=== PATIENT | male | born 1985 | race Caucasian/White ===

== ENCOUNTER 2021-10-22 17:01 | Emergency (ER) | payer MEDICARE, OTHER ==
[~2021-10-22 17:01] MED LIST: AUGMENTIN 500-500 MG PO; CALCIUM500 MG PO; CATAPRES 0.1MG0.1 MG PO; COREG 3.125M3.125 MG PO; LONITEN TAB 1010 MG PO; MINOXIDIL2.5 MG PO; OXYCODONE HCL10 MG PO; PROCRIT10000 UNIT INJ; RENVELA800 MG PO; SEVELAMER HYDROCHLORIDE PO; TUMS ULTRA400 MG PO
[2021-10-22 18:34] LABS: HEMOGLOBIN 7.2 gm/dl (14.0-17.5); RED BLOOD COUNT 2.55 M/UL (4.20-5.50); WHITE BLOOD COUNT 7.4 K/UL (4.5-11.0)
== END 2021-10-22 21:32 | disposition home or self-care (01) ==
LOC: ER1 17:01
PROVIDERS: Physician Assistant Medical
DX: R10.9 Unspecified abdominal pain (principal); E87.6 Hypokalemia; G89.29 Other chronic pain; M79.604 Pain in right leg; M79.605 Pain in left leg; M54.9 Dorsalgia, unspecified; F11.20 Opioid dependence, uncomplicated; Z20.822 Contact with and (suspected) exposure to COVID-19; Z88.1 Allergy status to other antibiotic agents; Z99.2 Dependence on renal dialysis; I12.0 Hypertensive chronic kidney disease with stage 5 chronic kidney disease or end stage renal disease; N18.6 End stage renal disease; F17.210 Nicotine dependence, cigarettes, uncomplicated
CPT/HCPCS: 80053; 82140; 83605; 83690; 84439; 84443; 85025; 85610; 85730; 99284; U0002